=== PATIENT | male | born 1950 | race Caucasian/White ===

== ENCOUNTER 2016-11-07 15:49 | Emergency (ER) | payer OTHER ==
[2016-11-07 15:58] VITALS: BP 125/77
[2016-11-07] MEDS ORDERED: LIDOCAINE 2% 10 ML MDV ONE (16:29)
--- NOTE | 2016-11-07 16:42 | ED Physician Documentation ---
PD HPI UPPER EXT INJURY - Stated complaint Stated Complaint: R FINGER LAC - Chief complaint Chief Complaint: Laceration - History obtained from History obtained from: Patient - History of Present Illness Location: Right, Finger (middle) Type of injury: Laceration (fillet knife) Where injury occurred: Home Timing - onset: How many hours ago (1) Timing - duration: Hours (1) Timing - details: Abrupt onset Pain level max: 2 Pain level now: 1 Improved by: Rest Worsened by: Moving, Palpating Associated symptoms: No: Weakness, Numbness, Tingling Contributing factors: No: Anticoagulated - Additonal information Additional information: pt is left handed Review of Systems Neurologic: denies: Focal weakness, Numbness PD PAST MEDICAL HISTORY - Past Medical History Past Medical History: No - Past Surgical History Past Surgical History: No - Present Medications Home Medications: Ambulatory Orders Medication Instructions Recorded Confirmed No Known Home Medications [No 11/07/16 11/07/16 Known Home Medications] - Allergies Allergies/Adverse Reactions: Allergies Allergy/AdvReac Type Severity Reaction Status Date / Time No Known Drug Allergies Allergy Verified 11/07/16 15:54 - Social History Does the pt smoke?: No Smoking Status: Never smoker Does the pt drink ETOH?: No Does the pt have substance abuse?: No - Immunizations Immunizations are current?: No Immunizations: TDAP >10years/unknown - POLST Patient has POLST: No PD ED PE NORMAL - Vitals Vital signs reviewed: Yes - General General: Alert and oriented X 3, No acute distress - Derm Derm: Warm and dry - Extremities Extremities: Other (R middle finger - 1.5cm laceration, still bleeding. NVI) - Neuro Neuro: Alert and oriented X 3 - Psych Psych: Normal mood, Normal affect Results - Vitals Vitals: Vital Signs - 24 hr 11/07/16 15:52 Temperature 36.4 C L Heart Rate 80 Respiratory 18 Rate Blood Pressure 125/77 O2 Saturation 98 Oxygen O2 Source Room air Procedures - Laceration (location) R middle finger Length in cm: 1.5 Wound type: Linear, Into subcut fat, Clean Neurovascular status: Sensory intact, Motor intact, Vascular intact Tendon involvement: Tendon intact. No: Tendon Injury Anesthesia: Lidocaine 1% Wound Preparation: Irrigated copiously NS, Wound explored, To the base. No: FB identified, FB removed Skin layer closure: Nylon, Interrupted, Size #-0 - enter number (4), Sutures - enter # (3) Other: Patient tolerated well, No complications, Neurovascular intact, Tetanus booster given (tdap) Complexity: Simple PD MEDICAL DECISION MAKING - ED course Complexity details: considered differential, d/w patient ED course: Patient with a laceration of the right middle finger. Repaired. Tolerated well. Warnings of infection and instructions on wound care given at bedside. Also counseled on how to minimize scarring. Patient counseled regarding signs and symptoms for which I believe and urgent re-evaluation would be necessary. Patient with good understanding of and agreement to plan and is comfortable going home at this time This document was made in part using voice recognition software. While efforts are made to proofread this document, sound alike and grammatical errors may occur. Tdap given Departure - Departure Disposition: 01 Home, Self Care Clinical Impression: Finger laceration Qualifiers: Encounter type: initial encounter Qualified Code(s): S61.219A - Laceration without foreign body of unspecified finger without damage to nail, initial encounter Condition: Good Instructions: ED Laceration Hand Follow-Up: HAMILTON STAFFORD [Primary Care Provider] - (in 7-10 days for suture removal) Comments: Keep the wound clean. Return for redness, swelling, or drainage from the wound. Discharge Date/Time: 11/07/16 16:59
[2016-11-07] MEDS ORDERED: TETANUS/DIPHTHERIA/PERTUSSIS 0.5 ML SYRINGE IM ONE ×2 (16:46)
== END 2016-11-07 16:59 | disposition home or self-care (01) ==
LOC: ED 15:49
DX: S61.219A Laceration without foreign body of unspecified finger without damage to nail, initial encounter (principal); W26.0XXA Contact with knife, initial encounter; Y92.009 Unspecified place in unspecified non-institutional (private) residence as the place of occurrence of the external cause; Z23 Encounter for immunization
CPT/HCPCS: 12001; 90471; 99282; 99283

== ENCOUNTER 2021-06-12 18:20 | Emergency (ER) | payer MEDICARE, OTHER ==
[2021-06-12] MEDS ORDERED: LIDOCAINE 1%-EPI 1:100000 20 ML MDV SUBQ STA (18:44)
--- NOTE | 2021-06-12 18:46 | ED Physician Documentation ---
PD HPI HEAD INJURY - Stated complaint Stated Complaint: L SIDE FACE INJ,LACARATIONS - Chief complaint Chief Complaint: Trauma Hd/Nk - History obtained from History obtained from: Patient - Additional information Additional information: 71-year-old gentleman with unknown tetanus status to had a trip and fall forward onto concrete today and suffered a laceration above the left eyebrow. Has a mild headache. No loss of consciousness. Note made that he always has diplopia and wears corrective lenses for this, he states his diplopia is not any worse than normal. Note made that he has a record of a tetanus shot in 2017. Review of Systems Constitutional: denies: Fever, Chills Eyes: denies: Loss of vision, Decreased vision Ears: denies: Loss of hearing, Ear pain Nose: denies: Rhinorrhea / runny nose, Congestion Throat: denies: Sore throat PD PAST MEDICAL HISTORY - Past Surgical History Past Surgical History: No - Present Medications Home Medications: Ambulatory Orders Medication Instructions Recorded Confirmed No Known Home Medications 11/07/16 06/12/21 - Allergies Allergies/Adverse Reactions: Allergies Allergy/AdvReac Type Severity Reaction Status Date / Time No Known Drug Allergies Allergy Verified 11/07/16 15:54 - Social History Does the pt smoke?: No Smoking Status: Never smoker Does the pt drink ETOH?: No Does the pt have substance abuse?: No - Immunizations Immunizations are current?: No Immunizations: TDAP >10years/unknown - POLST Patient has POLST: No PD ED PE NORMAL - Vitals Vital signs reviewed: Yes - General General: Alert and oriented X 3, No acute distress - HEENT HEENT: Other (He does seem to have some tracking diplopia especially when he looks up into the left. States this is no worse than normal. 3 cm laceration within the left eyebrow and abrasion over the infraorbital area on the left.) - Neck Neck: Supple, no meningeal sign, No bony TTP, C-Spine cleared by NEXUS criteria - Neuro Neuro: Alert and oriented X 3, Normal speech Eye Opening: Spontaneous Motor: Obeys Commands Verbal: Oriented GCS Score: 15 Results - Vitals Vitals: Vital Signs - 24 hr 06/12/21 06/12/21 18:26 20:14 Temperature 36.4 C L 36.5 C Heart Rate 102 H 90 Respiratory 20 16 Rate Blood Pressure 160/90 H 138/88 H O2 Saturation 97 98 Oxygen O2 Source Room air - Rads (name of study) CT of the head and maxillofacial areas showed no intracranial hemorrhage or facial fractures. Radiology: EMP read contemporaneously Procedures - Laceration (location) L eyebrow Length in cm: 3 Wound type: Linear, Into subcut fat Anesthesia: Lidocaine 1% with epi Wound preparation: Irrigated copiously NS Skin layer closure: Prolene, Running, Size #-0 - enter number (6-0) Other: Tetanus UTD Departure - Departure Disposition: 01 Home, Self Care Clinical Impression: Fall from ground level Facial laceration Qualifiers: Encounter type: initial encounter Qualified Code(s): S01.81XA - Laceration without foreign body of other part of head, initial encounter Facial contusion Qualifiers: Encounter type: initial encounter Qualified Code(s): S00.83XA - Contusion of other part of head, initial encounter Facial abrasion Qualifiers: Encounter type: initial encounter Qualified Code(s): S00.81XA - Abrasion of other part of head, initial encounter Condition: Good Record reviewed to determine appropriate education?: Yes Instructions: ED Head Injury Closed Sleep Mon, ED Laceration Facial Sutr Tape Comments: Note for your records you did have a tetanus booster in 2017, so you are good for now. Come back for any signs of infection which would include: Redness, swelling, drainage, increased pain, or fevers. You can wash it soap and water. Keep it covered and moist with bacitracin ointment which is available over the counter; avoid neosporin. Follow-up with your physician in 6 days for suture removal. Discharge Date/Time: 06/12/21 20:00
--- NOTE | 2021-06-12 19:51 | CT Report ---
PROCEDURE: HEAD WO INDICATIONS: head inj TECHNIQUE: Noncontrast 4.5 mm thick angled axial sections acquired from the foramen magnum to the vertex. For r adiation dose reduction, the following was used: automated exposure control, adjustment of mA and/or kV according to patient size. COMPARISON: None. FINDINGS: Image quality: Excellent. CSF spaces: Basal cisterns are patent. No extra-axial fluid collections. Ventricles are normal in size and shape. Brain: No midline shift. No intracranial masses or hemorrhage. Ferrer-white matter interface is norm al. Skull and face: Calvarium and visualized facial bones are intact, without suspicious lesions. Sinuses: Visualized sinuses and mastoids are clear. IMPRESSION: 1. No CT evidence of acute intracranial trauma. 2. No visible calvarial fractures. Please see separate facial bone CT dictation. Reviewed by: Elsa Richards MD on 06/12/2021 7:50 PM PST Approved by: Elsa Richards MD on 06/12/2021 7:50 PM PST Station ID: [id number]
--- NOTE | 2021-06-12 19:56 | CT Report ---
PROCEDURE: MAXILLOFACIAL WO INDICATIONS: head inj TECHNIQUE: Noncontrast 1.5 mm thick axial images acquired from the mandible through the frontal sinuses, with co roland and sagittal reformatting. For radiation dose reduction, the following was used: automated ex posure control, adjustment of mA and/or kV according to patient size. COMPARISON: None. FINDINGS: Image quality: Excellent. Bones and teeth: Orbital adair are intact. Sinus adair show no fracture or deformity. Nasal bones and septum are intact. Visualized portions of the mandible demonstrate no fractures or subluxation. Zygomatic arches are intact. Pterygoid plates are intact. Visualized portions of the skull base an d auditory canals are intact. Sinuses: Mucosal thickening at the base of both maxillary sinuses, anteriorly in the left frontal si nus, throughout the ethmoid air cells, minimally in the sphenoid sinuses, but no acute fluid levels. Soft tissues: Small subcutaneous gas and mild soft tissue swelling laterally in the left periorbital region. The underlying globe and orbit appear normal. No suspicious fluid collections. No enlarged l ymph nodes. Vascular: Visualized vascular structures appear normal in the absence of contrast. Bony vascular fo ramina and canals are intact. IMPRESSION: 1. No acute facial bone fractures. 2. Mild left lateral periorbital soft tissue injury. 3. Mild diffuse sinus disease. Reviewed by: Elsa Richards MD on 06/12/2021 7:55 PM PST Approved by: Elsa Richards MD on 06/12/2021 7:55 PM PST Station ID: [id number]
[2021-06-12 20:15] VITALS: BP 138/88
== END 2021-06-12 20:00 | disposition home or self-care (01) ==
LOC: ED 18:20
DX: S01.112A Laceration without foreign body of left eyelid and periocular area, initial encounter (principal); S00.212A Abrasion of left eyelid and periocular area, initial encounter; W01.0XXA Fall on same level from slipping, tripping and stumbling without subsequent striking against object, initial encounter
CPT/HCPCS: 12013; 99282; 99284